=== PATIENT | female | born 1960 | race Caucasian/White ===

== ENCOUNTER 2019-09-10 15:06 | Emergency (ER) | payer BC ==
[2019-09-10] MEDS ORDERED: NA CHLORIDE 0.9% 500 ML ONE (16:37)
[2019-09-10] MEDS ORDERED: NA CHLORIDE 0.9% 1,000 ML ONE (16:37)
[2019-09-10 16:58] LABS: Protime INR 0.99
[2019-09-10 17:15] LABS: ALT/SGPT 26 U/L (12-78); AST/SGOT 46 U/L (15-37); Albumin 2.9 g/dL (3.4-5.0); Alkaline Phosphatase 147 U/L (45-117); BUN Blood Urea Nitrogen 7 mg/dL (7-18); Bicarbonate 22 mmol/L (21-32); Bilirubin Direct 0.3 mg/dL (0-0.2); Bilirubin Total 0.5 mg/dL (0.2-1.0); Glucose Level 93 mg/dL (74-106); NT PRO-BNP 1583 pg/mL (<125); Potassium 3.4 mmol/L (3.5-5.1); Protein, Total 7.1 g/dL (6.4-8.2); Sodium Level 133 mmol/L (136-145); Troponin (Emerg Dept Use Only) < 0.02 ng/mL (0.0-0.045)
--- NOTE | 2019-09-10 17:15 | RAD REPORT ---
EXAM DESCRIPTION: USExtremity Venous Uni Ltd09/10/2019 4:59 pm CLINICAL HISTORY: left leg pain and swelling. COMPARISON: 2016 FINDINGS: Left common femoral, superficial femoral, popliteal and posterior tibial veins are compre ssible and demonstrate augmentation. Doppler demonstrates good flow. 3.3 centimeter Laureano's cyst Ill-defined fluid is present within the subcutaneous tissues of the knee and calf IMPRESSION: No evidence of deep venous thrombosis involving the left lower extremity. 3.3 centimeter Laureano's cyst
[2019-09-10 17:17] LABS: Magnesium 1.2 mg/dL (1.8-2.4)
[2019-09-10] MEDS ORDERED: CLINDAMYCIN 600MG/D5W 600 MG/50 ML BAG IV ONE (17:19)
[2019-09-10] MEDS ORDERED: Magnesium Sulfate 2gm IVPB 2 G/50 ML BAG IV ONE (17:29)
[2019-09-10 17:36] LABS: Basophils % 1.5 % (0-1.3); Hematocrit 16.6 % (36.0-45.0); Lymphocytes % 30.4 % (15.3-44.8); MPV 6.2 fL (7.6-11.3); RBC Red Blood Cell Count 2.57 M/uL (3.86-4.86)
[2019-09-10 18:07] LABS: Anisocytosis 2+; Blood Morphology Comment NOTED (NOT SEEN); Hypochromasia 3+; Platelet Estimate INCR; Poikilocytosis 2+; Polychromasia 1+
[2019-09-10 18:08] LABS: Ovalocytes SLIGHT; Teardrop Cell FEW
[2019-09-10] MEDS ORDERED: PANTOPRAZOLE 40 MG INJ ONE (18:11)
[2019-09-10 18:30] LABS: Urine Blood NEGATIVE (NEG); Urine Glucose NEGATIVE (NEG); Urine Protein NEGATIVE (NEG); Urine Specific Gravity 1.015 (1.005-1.030); Urine pH 6.5 (5.0-7.0)
--- NOTE | 2019-09-10 18:33 | EKG ---
Test Date: 2019-09-10 Test Time: 17:02:54 Spray Gunner: KYLE MEASUREMENT RESULTS: Intervals: Rate: 130 MT: 144 QRSD: 76 QT: 288 QTc: 423 [place]: P: 65 MT: 144 QRS: 68 T: 70 INTERPRETIVE STATEMENTS: Sinus tachycardia with premature atrial complexes with aberrant conduction Otherwise normal ECG Compared to ECG 12/08/2015 08:38:53 Atrial premature complex(es) now present Aberrant conduction of supraventricular beat(s) now present Sinus rhythm no longer present Electronically Signed On 09-10-19 18:32:47 SHIFTMAN by Marcus Kruger
[2019-09-10] MEDS ORDERED: PANTOPRAZOLE INJ 80 MG in NA CHLORIDE 0.9% 250 ML IV SCH (19:00)
--- NOTE | 2019-09-10 19:39 | ER ---
Nurse's Notes [facility] Name: Deb Norton Age: 58 yrs Sex: Female : 1960 Arrival Date: 09/10/2019 Time: 15:07 Bed 28 Private MD: Diagnosis: Hypomagnesemia;Cellulitis of left lower limb;Tachycardia, unspecified;Anemia;GI Bleed Presentation: 09/10 15:29 Presenting complaint: Patient states: "I was going to Dr. Hodgson office and he saw the aj1 swelling in my legs and said come to the ER" Patient reports swelling to bilateral lower legs. Denies shortness of breath, denies chest pain. Transition of care: patient was not received from another setting of care. Onset of symptoms was September 10, 2019. Risk Assessment: Do you want to hurt yourself or someone else? Patient reports no desire to harm self or others. Initial Sepsis Screen: Does the patient meet any 2 criteria? HR > 90 bpm. No. Patient's initial sepsis screen is negative. Does the patient have a suspected source of infection? No. Patient's initial sepsis screen is negative. Care prior to arrival: None. 15:29 Method Of Arrival: Ambulatory aj1 15:29 Acuity: KAYLYNN 2 aj1 Triage Assessment: 15:30 General: Appears in no apparent distress. comfortable, Behavior is calm, cooperative, aj1 appropriate for age. Pain: Complains of pain in back Pain currently is 10 out of 10 on a pain scale. Neuro: Level of Consciousness is awake, alert, obeys commands. Cardiovascular: Patient's skin is warm and dry. Respiratory: Airway is patent Respiratory effort is even, unlabored, Respiratory pattern is regular, symmetrical. Historical: - Allergies: 15:30 No Known Allergies; aj1 - Home Meds: 15:30 None [Active]; aj1 - PMHx: 15:30 None; aj1 - PSHx: 15:30 back surgery; Knee surgery; aj1 - Immunization history:: Flu vaccine is not up to date. - Social history:: Smoking status: Patient uses tobacco products, smokes one pack cigarettes per day. - Ebola Screening: : Patient denies travel to an Ebola-affected area in the 21 days before illness onset. Screenin:28 Abuse screen: Denies threats or abuse. Denies injuries from another. Nutritional rv screening: No deficits noted. Tuberculosis screening: No symptoms or risk factors identified. Fall Risk None identified. Assessment: 16:26 General: Appears in no apparent distress. Behavior is calm, cooperative. Pain: rv Complains of pain in head. Neuro: Level of Consciousness is awake, alert, obeys commands, Oriented to person, place, time, situation. Cardiovascular: Patient's skin is warm and dry. Respiratory: Airway is patent. GI: No signs and/or symptoms were reported involving the gastrointestinal system. : No signs and/or symptoms were reported regarding the genitourinary system. EENT: No signs and/or symptoms were reported regarding the EENT system. Derm: Skin is intact. Musculoskeletal: No signs and/or symptoms reported regarding the musculoskeletal system. 16:35 Reassessment: code sepsis called. mg2 21:23 Reassessment: Patient appears in no apparent distress at this time. Patient and/or rv family updated on plan of care and expected duration. Pain level reassessed. Patient is alert, oriented x 3, equal unlabored respirations, skin warm/dry/pink. patient was updated on the lab results by Bipin and explained the plan of care. rectal exam was done at bedside with JAYMIE Ramos. patient agreed with the plan of care. blood transfusion signed by the patient. started transfusion as ordered, after giving pre-medication. Patient denies pain at this time. 22:18 Reassessment: patient 1st unit of bag consumed without any signs of blood transfusion rv reaction. 2nd unit started and continued upon transfer. Vital Signs: 15:30 BP 176 / 94; Pulse 131; Resp 20; Temp 98.0; Pulse Ox 100% on R/A; Weight 54.43 kg (R); aj1 Height 5 ft. 7 in. (170.18 cm) (R); 16:46 BP 185 / 85 (/reg); Pulse 130; Resp 18 S; Pulse Ox 99% on R/A; jp3 18:56 BP 169 / 80; Pulse 120; Resp 18; Pulse Ox 95% on R/A; mg2 19:30 BP 169 / 80; Pulse 124; Resp 19; Pulse Ox 97% on 2 lpm NC; rv 20:30 BP 165 / 78; Pulse 125; Resp 18; Pulse Ox 96% on 2 lpm NC; rv 21:15 BP 172 / 82; Pulse 120; Resp 23; Pulse Ox 96% on 2 lpm NC; rv 22:14 BP 185 / 99; Pulse 121; Resp 21; Temp 98.5(O); Pulse Ox 96% on 2 lpm NC; rv 15:30 Body Mass Index 18.79 (54.43 kg, 170.18 cm) aj1 ED Course: 15:07 Patient arrived in ED. as 15:30 Triage completed. aj1 15:30 Arm band placed on. aj1 15:54 Bipin Bolaños PA is PHCP. m 15:54 Sofiya Hutchinson MD is Attending Physician. m 16:24 Saurabh Da Silva, JAYMIE is Primary Nurse. rv 16:28 Patient has correct armband on for positive identification. Bed in low position. Call rv light in reach. Side rails up X 1. Pulse ox on. NIBP on. 16:40 Inserted saline lock: 20 gauge in left antecubital area, using aseptic technique. Blood rv collected. 16:40 First set of blood cultures drawn by me. rv 16:59 US Extremity Venous Unilateral Ltd In Process Unspecified. EDMS 17:08 EKG done, by financial services technician. reviewed by Bipin GOTTI. sm3 17:10 Second set of blood cultures drawn by me. rv 17:10 Inserted saline lock: 20 gauge in right forearm, using aseptic technique. Blood rv collected. 17:59 T\\T\\S collected, blood band applied to patient. jp3 17:59 Type And Screen Sent. jp3 18:13 attempted transfer to [facility], pt denied due to no beds. per Johanna Sandoval. bd 18:16 attempted transfer to [facility]. bd 22:17 No provider procedures requiring assistance completed. Patient transferred, IV remains rv in place. Administered Medications: 16:45 Drug: NS 0.9% (30 ml/kg) 30 ml/kg Route: IV; Rate: bolus; Site: left antecubital; rv 18:43 Follow up: IV Status: Completed infusion; IV Intake: 1633ml rv 17:15 Drug: Clindamycin 600 mg Route: IVPB; Infused Over: 30 mins; Site: left antecubital; rv 17:45 Follow up: IV Status: Completed infusion rv 17:40 Drug: Magnesium Sulfate 2 grams Route: IVPB; Infused Over: 2 hrs; Site: right forearm; rv 18:44 Follow up: IV Status: Completed infusion rv 22:16 Follow up: IV Status: Completed infusion rv 18:16 Drug: ProTONIX 40 mg Route: IVP; Site: right forearm; rv 22:15 Follow up: Response: No adverse reaction rv 18:43 Drug: ProTONIX 8 mg/hr Route: IV; Rate: 25 ml/hr; Site: right forearm; rv 22:15 Follow up: IV Status: Infusion continued upon transfer rv Intake: 18:43 IV: 1633ml; Total: 1633ml. rv Outcome: 19:38 ER care complete, transfer ordered by MD. [facility] 22:19 Transferred by ground EMS to [facility], Transfer form completed. rv X-rays sent w/ patient. Note: report given to [facility]. 22:19 Condition: stable 22:19 Instructed on the need for transfer. 22:20 Patient left the ED. rv Signatures: Dispatcher [employer] EDMS Marilynn Cason Angela, RN RN aj1 Bipin Bolaños PA PA Elba Cespedes Michele, RN RN mg2 [facility] 3 Saurabh Da Silva RN RN rv Candelario Santos jp3 Corrections: (The following items were deleted from the chart) 17:52 17:15 Inserted saline lock: 20 gauge in right forearm, using aseptic technique. Blood rv collected. rv
--- NOTE | 2019-09-10 19:40 | EDPHYS ---
Physician Documentation [facility] Name: Deb Norton Age: 58 yrs Sex: Female : 1960 Arrival Date: 09/10/2019 Time: 15:07 Bed 28 Private MD: ED Physician Sofiya Hutchinson HPI: 09/10 16:16 This 58 yrs old Female presents to ER via Ambulatory with complaints of Leg jmm Swelling. 16:16 The complaints affect the. jmm 16:16 Onset: The symptoms/episode began/occurred gradually, at an unknown time. Modifying jmm factors: The symptoms are alleviated by nothing. the symptoms are aggravated by nothing. Associated signs and symptoms: Pertinent negatives fever. This is a 58 year old female with no known chronic medical conditions that presents to the ED with complaints of left lower leg swelling. Patient was sent by her crime specialist due to leg swelling and elevated heart rate. Patient had a lumbar cyst removal in May of this year. Patient states since she has taken alieve daily. Also admits to two glasses of whiskey a day. Denies chest pain or shortness of breath. . Historical: - Allergies: 15:30 No Known Allergies; aj1 - Home Meds: 15:30 None [Active]; aj1 - PMHx: 15:30 None; aj1 - PSHx: 15:30 back surgery; Knee surgery; aj1 - Immunization history:: Flu vaccine is not up to date. - Social history:: Smoking status: Patient uses tobacco products, smokes one pack cigarettes per day. - Ebola Screening: : Patient denies travel to an Ebola-affected area in the 21 days before illness onset. ROS: 16:16 Constitutional: Negative for fever, chills, and weight loss, Cardiovascular: Negative jmm for chest pain, palpitations, and edema, Respiratory: Negative for shortness of breath, cough, wheezing, and pleuritic chest pain. 16:16 Back: Negative for injury and pain, Neuro: Negative for headache, weakness, numbness, tingling, and seizure. 16:16 MS/extremity: Positive for erythema. 16:16 All other systems are negative. Exam: 16:16 Constitutional: This is a well developed, well nourished patient who is awake, alert, jmm and in no acute distress. Head/Face: atraumatic. Eyes: EOMI, no conjunctival erythema appreciated ENT: Moist Mucus Membranes Neck: Trachea midline, Supple Chest/axilla: Normal chest wall appearance and motion. 16:16 Abdomen/GI: Non distended, soft Back: Normal ROM Skin: General appearance color normal MS/ Extremity: Moves all extremities, no obvious deformities appreciated, no edema noted to the lower extremities 16:16 Cardiovascular: Rate: tachycardic, Rhythm: regular. 16:16 Respiratory: the patient does not display signs of respiratory distress, Respirations: normal, Breath sounds: are clear throughout. 16:16 Abdomen/GI: Inspection: abdomen appears normal, Bowel sounds: normal, Palpation: abdomen is soft and non-tender. 16:16 Neuro: Orientation: is normal, Mentation: is normal, Memory: is normal. 16:16 Psych: Behavior/mood is pleasant, cooperative. Vital Signs: 15:30 BP 176 / 94; Pulse 131; Resp 20; Temp 98.0; Pulse Ox 100% on R/A; Weight 54.43 kg (R); aj1 Height 5 ft. 7 in. (170.18 cm) (R); 16:46 BP 185 / 85 (/reg); Pulse 130; Resp 18 S; Pulse Ox 99% on R/A; jp3 18:56 BP 169 / 80; Pulse 120; Resp 18; Pulse Ox 95% on R/A; mg2 19:30 BP 169 / 80; Pulse 124; Resp 19; Pulse Ox 97% on 2 lpm NC; rv 20:30 BP 165 / 78; Pulse 125; Resp 18; Pulse Ox 96% on 2 lpm NC; rv 21:15 BP 172 / 82; Pulse 120; Resp 23; Pulse Ox 96% on 2 lpm NC; rv 22:14 BP 185 / 99; Pulse 121; Resp 21; Temp 98.5(O); Pulse Ox 96% on 2 lpm NC; rv 15:30 Body Mass Index 18.79 (54.43 kg, 170.18 cm) aj1 MDM: 16:[address] [facility] 19:36 Data reviewed: vital signs, nurses notes. Counseling: I had a detailed discussion with ricardo the patient and/or guardian regarding: the historical points, exam findings, and any diagnostic results supporting the discharge/admit diagnosis, lab results, the need to transfer to another facility. ED course: Unable to admit due to lack of GI coverage. I discussed the patient with Dr. Rey whom accepted admission/transfer. . 09/10 16:27 Order name: Basic Metabolic Panel; Complete Time: 17:25 [facility] 09/10 16:27 Order name: CBC with Diff; Complete Time: 18:26 [facility] 09/10 16:27 Order name: LFT's; Complete Time: 17:25 [facility] 09/10 16:27 Order name: Magnesium; Complete Time: 17:25 [facility] 09/10 16:27 Order name: NT PRO-BNP; Complete Time: 17:25 [facility] 09/10 16:27 Order name: PT-INR; Complete Time: 17:08 [facility] 09/10 16:27 Order name: Troponin (emerg Dept Use Only); Complete Time: 17:25 [facility] 09/10 16:27 Order name: Procalcitonin; Complete Time: 17:40 [facility] 09/10 16:27 Order name: Lactate; Complete Time: 17:25 [facility] 09/10 16:27 Order name: Blood Culture Adult (2) [facility] 09/10 17:43 Order name: Type And Screen [facility] 09/10 17:43 Order name: Manual Differential; Complete Time: 18:26 [facility] 09/10 17:55 Order name: Urine Dipstick--Ancillary (enter results); Complete Time: 18:30 09/10 18:24 Order name: Occult Blood--Ancillary 09/10 16:27 Order name: EKG; Complete Time: 16:28 [facility] 09/10 16:27 Order name: Cardiac monitoring; Complete Time: 16:50 [facility] 09/10 16:27 Order name: EKG - Nurse/Tech; Complete Time: 17:26 [facility] 09/10 16:27 Order name: US Extremity Venous Unilateral Ltd; Complete Time: 17:25 [facility] 09/10 18:46 Order name: ABO/RH no charge; Complete Time: 19:04 [facility] 09/10 19:24 Order name: Packed RBC Leukored [facility] 09/10 20:22 Order name: Lactate Sepsis 2 HR Follow-up; Complete Time: 20:23 [facility] 09/10 16:27 Order name: IV Saline Lock; Complete Time: 16:50 [facility] 09/10 16:27 Order name: Labs collected and sent; Complete Time: 16:49 [facility] 09/10 16:27 Order name: O2 Per Protocol; Complete Time: 16:49 [facility] 09/10 16:27 Order name: O2 Sat Monitoring; Complete Time: 16:49 [facility] 09/10 17:12 Order name: Labs - recollect needed; Complete Time: 17:16 bd Administered Medications: 16:45 Drug: NS 0.9% (30 ml/kg) 30 ml/kg Route: IV; Rate: bolus; Site: left antecubital; rv 18:43 Follow up: IV Status: Completed infusion; IV Intake: 1633ml rv 17:15 Drug: Clindamycin 600 mg Route: IVPB; Infused Over: 30 mins; Site: left antecubital; rv 17:45 Follow up: IV Status: Completed infusion rv 17:40 Drug: Magnesium Sulfate 2 grams Route: IVPB; Infused Over: 2 hrs; Site: right forearm; rv 18:44 Follow up: IV Status: Completed infusion rv 22:16 Follow up: IV Status: Completed infusion rv 18:16 Drug: ProTONIX 40 mg Route: IVP; Site: right forearm; rv 22:15 Follow up: Response: No adverse reaction rv 18:43 Drug: ProTONIX 8 mg/hr Route: IV; Rate: 25 ml/hr; Site: right forearm; rv 22:15 Follow up: IV Status: Infusion continued upon transfer rv Disposition: 09/10/19 19:38 Transfer ordered to [facility]. Diagnosis are Hypomagnesemia, Cellulitis of left lower limb, Tachycardia, unspecified, Anemia, GI Bleed. - Reason for transfer: Higher level of care. - Accepting physician is Candido. - Condition is Stable. - Problem is new. - Symptoms have improved. Signatures: Dispatcher [employer] EDMS Marilynn Cason Angela, RN RN aj1 Bipin Bolaños PA PA jmm Smirch, Shelby, RN RN ss Saurabh Da Silva, JAYMIE RN rv Corrections: (The following items were deleted from the chart) 19: 19:07 PACKED RBC LEUKORED -1+BB.LAB.BRZ ordered. EDMS EDMS : 19:07 ABO/RH typing ordered. EDMS EDMS : 19:07 Antibody Screen ordered. EDMS EDMS 22:20 19:38 09/10/2019 19:38 Transfer ordered to [facility]. Diagnosis is rv Hypomagnesemia; Cellulitis of left lower limb; Tachycardia, unspecified; Anemia; GI Bleed. Reason for transfer: Higher level of care. Accepting physician is Candido. Condition is Stable. Problem is new. Symptoms have improved. ricardo
[2019-09-10] MEDS ORDERED: NA CHLORIDE 0.9% 250 ML ONE (19:53)
[2019-09-10] MEDS ORDERED: HYDROCORTISONE SUC 100 MG INJ ONE (20:17)
[2019-09-10] MEDS ORDERED: DIPHENHYDRAMINE 50 MG/ML VIAL ONE (20:18)
[2019-09-11 01:36] VITALS: O2SAT 96
[2019-09-11 01:38] VITALS: BP 185/99; TEMP 98.5
== END 2019-09-10 22:20 | disposition short-term general hospital (02) ==
LOC: ER 15:06
PROC: 30233N1 Transfusion of Nonautologous Red Blood Cells into Peripheral Vein, Percutaneous Approach (ICD-10-PCS; principal; 2019-09-10)
DX: L03.116 Cellulitis of left lower limb (principal); D64.9 Anemia, unspecified; E83.42 Hypomagnesemia; R00.0 Tachycardia, unspecified; K92.2 Gastrointestinal hemorrhage, unspecified; F17.210 Nicotine dependence, cigarettes, uncomplicated
CPT/HCPCS: 96365; 96367; 96368; 93005; 87040 ×2; 85025; 80048; 36415; 86900; 83735; 86850; 85610; 86901; 80076; 83605 ×2; 81003; 84484; 84145; 83880; 93971; 96375; 99285; 96366; 36430; J1200; C9113 ×2; J3475; P9016 ×2; J7030 ×3; J7040; J1720